=== PATIENT | female | born 1990 | race Caucasian/White ===

== ENCOUNTER 2017-08-02 21:15 | Emergency (ER) | payer MEDICAID ==
--- NOTE | 2017-08-02 21:34 | EDPHY ---
General Time Seen by Provider: 08/02/17 21:18 Narrative: CHIEF COMPLAINT: M1 HISTORY OF PRESENT ILLNESS: Patient presents by [facility] on an M1 hold due to suicidal ideation. They documented she corroborates that she has had suicidal thoughts and a plan of hanging herself with the news. She says that "I felt this way since I was 13. No one cares about me know in cares by anyone." She admits to feeling very depressed and suicidal. She has a plan of hanging herself or " what ever takes."She expresses intent. She has no other complaints. She denies ingestion of any drugs today but does admit to drinking a half pt of whiskey. PSYCHIATRIC DIAGNOSES: Major depressive disorder, general anxiety disorder, panic attacks, anxiety, questionable bipolar disorder PRIOR PSYCHIATRIC EVALUATIONS: Multiple inpatient evaluations M1/DETAINER: [facility] at time of arrival REVIEW OF SYSTEMS: Ten systems reviewed and are negative unless otherwise noted in the HPI EXAMINATION General Appearance: Alert, no distress. Anxious and tearful Head: normocephalic, atraumatic Eyes: Pupils equal and round, no conjunctival pallor or injection ENT, Mouth: Mucous membranes moist Neck: Normal inspection, supple, non-tender Respiratory: Lungs are clear to auscultation Cardiovascular: Regular rate and rhythm Gastrointestinal: Abdomen is soft and nontender Back: non-tender, no bony abnormalities Neurological: A&O, nonfocal, normal gait Skin: Warm and dry, no rash Extremities: Nontender, no pedal edema Psychiatric: Anxious, tearful, admits suicidal ideation with plan of hanging herself. She expresses flight of ideas with tangential thought and pressured speech. DIFFERENTIAL DIAGNOSES: Including but not limited to suicidal ideation, bipolar disorder, manic episode , acute alcohol intoxication MDM: 9:30 p.m. M1 hold by [facility] for suicidal ideation. She does have a plan to hang herself and had a new set ladder ready when [employer] arrived. She also exhibits evidence of manic episode. She has provided urine sample, blood samples have been drawn. We will proceed with clearance and evaluation. She denies taking any lithium or medications that would require a level check. 10:20 p.m. At this time laboratory studies are remarkable. Serum ethanol level is 140. Charge nurse is investigating mental health evaluation at this time. She is medically cleared 11:05 p.m. Patient has become very agitated and combative, threatening to injure the staff. I do feel it is safe for the patient be admission medication. Dr. Phillip has evaluated patient verbalize Haldol and Ativan. 1:00 a.[address]. At this time Dr. Phillip will assume care the patient. Please see his note for further care and disposition. Patient is pending evaluation in the morning. SUPERVISION: Patient was independently examined, but I discussed the case with my secondary supervising physician Dr. Phillip ([facility] 0100 care assumed from CINTHIA Haynes pending [facility] mental health evaluation. 0700 patient signed out to Dr. Chavez pending [facility] mental health evaluation. I have had no issues with this patient overnight. (Lei Phillip) Medical Decision Makin:00 a.m. the patient has been evaluated by [facility]. They would like to admit. They will begin looking for placement. 3:00 p.m. Care transferred to Dr. Lyndon Santiago at shift change (Neymar Chavez) - Objective Vital Signs: Initial Vital Signs Temperature (C) 36.7 C 08/02/17 21:19 Heart Rate 120 H 08/02/17 21:19 Respiratory Rate 20 08/02/17 21:19 Blood Pressure 130/101 H 08/02/17 21:19 O2 Sat (%) 97 08/02/17 21:19 O2 Delivery Mode Room Air Allergies/Adverse Reactions: No Known Allergies Allergy (Unverified 08/02/17 21:18) Laboratory Results: Laboratory Results 08/02/17 21:25 08/02/17 21:25 Medications Given: Discontinued Medications Haloperidol Lactate (Haldol Injection) 5 mg IM EDNOW ONE Stop: 08/02/17 23:10 Last Admin: 08/02/17 23:10 Dose: 5 mg Lorazepam (Ativan) 1 mg PO EDNOW ONE Stop: 08/02/17 22:05 Last Admin: 08/02/17 22:14 Dose: 1 mg Lorazepam (Ativan Injection) 2 mg IM EDNOW ONE Stop: 08/02/17 23:10 Last Admin: 08/02/17 23:10 Dose: 2 mg Departure - Departure Clinical Impression: Suicidal ideation Condition: Fair Referrals: NONE *PRIMARY CARE P,. [Primary Care Provider] - As per Instructions Rina Hayden, [Doctor of Osteopathy] - As per Instructions
[2017-08-02 21:45] LABS: PLATELET COUNT 207 10^3/uL (150-400)
[2017-08-02] MEDS ORDERED: LORazepam 1 MG TAB PO ONE (22:04)
[2017-08-02] MEDS ORDERED: LORazepam 2 MG/ML INJ IM ONE (23:09)
[2017-08-02] MEDS ORDERED: HALOPERIDOL LACT 5 MG/ML INJ IM ONE (23:09)
[2017-08-03 19:31] VITALS: BP 105/70
== END 2017-08-03 19:31 ==
DX: R45.851 Suicidal ideations (principal)
CPT/HCPCS: 80305; G0480